=== PATIENT | female | born 1965 | race African-American/Black ===

== ENCOUNTER 2016-08-07 20:59 | Inpatient (IN) | payer MEDICARE, OTHER ==
--- NOTE | ~2016-08-07 | HP ---
History And Physical [place] [id number] [facility] [place]. [address] NAME: TAHMINA DUNCAN : 61 STATUS : ADM IN PAT#: [id number] AGE: 50 ADM/REG DATE : 08/08/16 MR#: [id number] REPORT SERV DATE: 08/08/16 DICTATED BY: CHRISTINE PANTOJA DATE: 08/08/16 REPORT STATUS : Draft TRANSCRIBED BY: MODTamika DATE: 08/08/16 DATE OF ADMISSION: 08/08/2016 CHIEF COMPLAINT: Uncontrolled blood pressure with blood pressure greater than 200. HISTORY OF PRESENT ILLNESS: This is a 50 years old female with a past medical history of ulcerative colitis, being followed by Dr. Rob Dawn, history of hypertension, cirrhosis, and polysubstance abuse, presented after being seen by her primary care physician, Dr. Sharon Tate, and found to have uncontrolled hypertension with a systolic blood pressure greater than 200 and diastolic pressure greater than 100, and the patient presented to [facility] ER. Her blood pressure was noted to be 201/106 upon arrival. The patient was given a dose of clonidine by ER physician, Dr. Bustamante. Also, the patient had a complaint of intermittent chest discomfort and also maroon-colored stools. According to the patient, she has had maroon-colored stools intermittently for the past two to three days with abdominal discomfort. Also, she describes her chest discomfort as intermittent, sharp with chest tightness, more on the left side, for which she states improves with an occasional anti- acid, but has been ongoing for several days intermittently. She denies any subjective fever or chills. No shortness of breath. She had a stool Hemoccult in the ER by ER nurse, which was brown stool and Hemoccult negative, and the hospitalist was called to admit the patient to the hospital. REVIEW OF SYSTEMS: Please refer to HPI. PAST MEDICAL HISTORY: Ulcerative colitis, gastroenteritis, hypertension, cirrhosis, bipolar, polysubstance abuse, esophageal varices, chronic lower back pain, chronic thrombocytopenia, IBS, anxiety, depression, GI bleed, Olmos's palsy, and peptic ulcer disease.. PAST SURGICAL HISTORY: , cholecystectomy, hysterectomy. ALLERGIES: NO KNOWN ALLERGIES. FAMILY HISTORY: Hypertension, CVA, and type 2 diabetes. SOCIAL HISTORY: Denies any tobacco abuse, denies any alcohol, and also denies any illicit drugs, although the patient was positive for cocaine and opiates. After the patient was informed of positive urine drug screen, she admitted to occasional marijuana usage and states that she has a partner who occasionally deals with cocaine, but the patient denies any cocaine usage, although positive for UDS. The patient denies any abuse. Denies anyone hitting her, although does have a black eye at this time. The patient states that she fell several days ago. HOME MEDICATIONS: Nexium 20 mg p.o. q.a.m. Prozac 40 mg p.o. q.a.m., multivitamin, Percocet one tab p.o. t.i.d., although no record on file per pharmacy with the admit database. Norvasc two tablets p.o. q.a.m. unknown dosage and an unknown iron tablet. History And Physical [address] [address] NAME: TAHMINA DUNCAN : 61 STATUS : ADM IN [facility]#: [id number] AGE: 50 ADM/REG DATE : 08/08/16 MR#: [id number] REPORT SERV DATE: 08/08/16 DICTATED BY: CHRISTINE PANTOJA DATE: 08/08/16 REPORT STATUS : Draft TRANSCRIBED BY: LUZ MARIA DATE: 08/08/16 PHYSICAL EXAMINATION: VITAL SIGNS: Temp of 98.1, initial blood pressure 201/106 currently at 125/79 with a pulse of 68, respirations 16, and saturating 99% on room air. GENERAL: The patient is alert and oriented x3, currently in no distress. Initially was resting upon arriving to the room. HEENT: Pupils equal, round, and reactive to light. Extraocular muscles are intact. Moist mucous membranes. CARDIOVASCULAR: S1, S2. Regular rate and rhythm. No murmurs, rubs, or gallops. RESPIRATORY: Clear to auscultation bilaterally. No wheezes or crackles. No signs of tachypnea. ABDOMEN: Positive bowel sounds. Soft, nontender. No rebound. No fluid wave. No distention. EXTREMITIES: 2+ pulse bilaterally. No neuro focal deficits of the extremities. The patient does have a chronic facial droop secondary to history of Olmos's palsy per patient. SKIN: The patient with black eye of the left eye. LABORATORY DATA: Sodium 140, potassium 3.5 with a chloride of 105, bicarb of 28, BUN of 9, creatinine is 0.96 with glucose of 98, albumin of 2.9, T bilirubin of 2.7, alkaline phosphatase 204, ALT of 39, AST of 93, troponin 0.04 and 0.05. Alcohol level less than 10. Salicylate less than 1.7. White count of 6.1 with a hemoglobin of 11.8, platelet count 151. INR of 1.4. Urine drug screen positive for cocaine and positive for opiates. EKG, normal sinus rhythm, no ST elevation. ASSESSMENT AND PLAN: 1. Hypertensive urgency, chest pain. 2. Abdominal pain with a history of ulcerative colitis. 3. Cirrhosis. 4. Polysubstance abuse. 5. The patient has been educated on polysubstance abuse cessation and the risks. Suspect the patient's intermittent chest discomfort is either GI related versus cocaine induced. However, the patient has never had a stress test. Therefore, may consider stress test as well. Also, we will order a CT of the abdomen and pelvis for abdominal discomfort, more generalized, and check for any underlying ulcerative colitis flare. 6. The patient will be admitted to and seen by my colleague, who will attend to this patient's care. [facility]/LUZ MARIA Christine Pantoja M.D. / [id number] CC: Theodore Barron MD History And Physical [address] [address] NAME: TAHMINA DUNCAN : 61 STATUS : ADM IN [facility]#: [id number] AGE: 50 ADM/REG DATE : 08/08/16 MR#: [id number] REPORT SERV DATE: 08/08/16 DICTATED BY: CHRISTINE PANTOJA DATE: 08/08/16 REPORT STATUS : Draft TRANSCRIBED BY: MODL DATE: 08/08/16 Sharon Tate M.D.
--- NOTE | ~2016-08-07 | DS ---
Discharge Summary [facility] [address] [facility] [place]. [address] NAME: TAHMINA DUNCAN : 61 STATUS : DIS IN PAT#: [id number] AGE: 50 ADM/REG DATE : 08/08/16 MR#: [id number] REPORT SERV DATE: 08/10/16 DICTATED BY: MERE IZQUIERDO DATE: 08/09/16 REPORT STATUS : Draft TRANSCRIBED BY: MODL DATE: 08/09/16 ADMISSION DATE: 08/08/2016 DISCHARGE DATE: 08/09/2016 The patient is a 50-year-old female with a history of hypertension, cirrhosis, ulcerative colitis who presented to the hospital with severely elevated blood pressure. For further details, please refer to H and P dictated by Dr. Conde on 08/08/2016. HOSPITAL COURSE: Upon presentation to the emergency room, patient was admitted under the Hospitalist Service. Her hypertensive urgency was treated with medication with subsequent improvement and eventual control of her hypertension. Also while in the emergency room, preliminary workup also included a urine drug screen which was positive for cocaine. Her initial troponin measured in the ER was 0.04 which trended up to 0.05. Her chest pain was thought to be cocaine induced versus ACS. During her hospital course, the patient had a myocardial perfusion study performed which was negative. While in the hospital, I counseled about the dangers of polysubstance abuse and counseled to stop using cocaine and marijuana. The patient voiced her willingness to quit. She has remained hemodynamically stable throughout her hospitalization. She did have an episode of chest pain overnight prompting an EKG to be obtained which was negative for any acute process with no ST elevations noted. Given her hemodynamic stability during completion of workup, the patient will be discharged today. Her medications have been up titrated to better control her hypertension. Given completion of workup and given her hemodynamic stability, patient will be discharged today. Plan has been discussed with the patient who voices understanding and is agreeable with this plan. DISCHARGE DIAGNOSES: 1. Hypertensive urgency. 2. Chest pain. 3. History of ulcerative colitis. 4. Polysubstance abuse. 5. Cirrhosis, compensated. DISCHARGE EXAM: VITAL SIGNS: Patient lying in bed, no acute distress. Appears stated age. Vitals: Blood pressure 133/75, pulse 61, respiration 14, O2 saturation 98% on room air. Temperature 97.9. GENERAL: The patient lying in bed, appears stated age, in no acute distress. HEENT: Normocephalic, atraumatic. Extraocular motors intact. Oral: Moist oral mucosa. Neck: Trachea midline. Symmetric. No JVD. No thyromegaly. No lymphadenopathy noted. CHEST: Nontender to palpation. CARDIOVASCULAR: Regular rate and rhythm S1, S2. No murmurs, rubs, or gallops. LUNGS: Clear to auscultation bilaterally with normal respiratory effort. ABDOMEN: Positive bowel sounds. Nontender. Nondistended. EXTREMITIES: No cyanosis, no clubbing, no edema. NEURO: Alert and oriented x3. No focal deficits appreciated. DISCHARGE MEDICATIONS: The patient's home medications were continued with increase in her Discharge Summary [address] [address] NAME: TAHMINA DUNCAN : 61 STATUS : DIS IN PAT#: [id number] AGE: 50 ADM/REG DATE : 08/08/16 MR#: [id number] REPORT SERV DATE: 08/10/16 DICTATED BY: MERE IZQUIERDO DATE: 08/09/16 REPORT STATUS : Draft TRANSCRIBED BY: LUZ MARIA DATE: 08/09/16 lisinopril from 5 to 10 mg p.o. daily. Discharge medications include: 1. Amlodipine 10 mg p.o. daily. 2. Prozac 40 mg p.o. every morning. 3. Multivitamin one tablet. 4. Lisinopril 10 mg p.o. daily. 5. Nexium 20 mg p.o. every morning. 6. Percocet 10/325 mg tablet p.o. one tab p.o. three times a day. 7. Ferrous sulfate 325 mg p.o. three times a day with meals. IMAGING: Nuclear myocardial imaging. Conclusion: Imaging demonstrated no ischemia with a fixed anterior defect on technical limited. Positions aligned below, post infusion EF 56%. Overall low risk to vasodilators stress test. DISPOSITION: Patient will be discharged home. FOLLOWUP: With her primary care. DIET: Low-salt diet. ACTIVITY: As tolerated. Greater than 30 minutes were spent coordinating care, planning discharge, dictation of note, medication reconciliation, providing counseling. ÓSCAR Mere Izquierdo MD / [id number] CC: MD Sharon Farnsworth M.D.
[2016-08-07 16:54] LABS: BASOPHILS 0.5 %; BASOPHILS ABSOLUTE 0.03 10/3/uL (0.0-0.16); EOSINOPHILS 0.7 %; EOSINOPHILS ABSOLUTE 0.04 10/3/uL (0.0-0.53); ER CBC TAT 0 Hrs 07 Mins; HEMATOCRIT 35.9 % (36.0-48.0); HEMOGLOBIN 11.8 g/dL (12.0-16.0); IMMATURE GRANULOCYTES 0.2 %; IMMATURE GRANULOCYTES ABSOLUTE 0.01 10/3/uL (0.0-0.11); LYMPHOCYTES 29.5 %; MEAN CORPUS HGB CONC 32.9 g/dL (32.0-36.0); MEAN CORPUSCULAR HEMOGLOB 31.2 pg (26.0-34.0); MONOCYTES 4.8 %; MONOCYTES ABSOLUTE 0.29 10/3/uL (0.21-1.20); NEUTROPHILS 64.3 %; NEUTROPHILS ABSOLUTE 3.93 10/3/uL (2.02-8.40); PLATELET COUNT 151 10/3/uL (150-400); RBC DISTRIBUTION WIDTH 17.5 % (12.0-16.0); RED CELL COUNT 3.78 10/6/uL (4.0-5.6); WHITE BLOOD CELLS 6.1 10/3/uL (4.5-10.5)
[2016-08-07 16:56] LABS: MANUAL DIFF NO %
[2016-08-07 17:04] LABS: INTERNATIONAL NORMAL RATI 1.4 UNITS (-); PARTIAL THROMBO TIME 37.3 SEC (22.5-37.2); PROTIME (NOT ORD) 16.9 SEC (12.0-14.5)
[2016-08-07 17:08] LABS: A/G RATIO 0.4 (0.7-1.9); ALBUMIN 2.9 G/DL (3.5-5.0); ALKALINE PHOSPHATASE 204 U/L (45-117); BUN (BLOOD UREA NITROGEN) 9 MG/DL (6-23); CALCIUM, SERUM 8.8 MG/DL (8.5-10.4); CHLORIDE, SERUM 105 MMOL/L (96-112); CO2 (CARBON DIOXIDE) 28 MMOL/L (24-34); CREATININE 0.96 MG/DL (0.55-1.02); GFR AFRICAN AMERICAN 79 ML/MIN (>=60); GFR NON AFRICAN AMERICAN 68 ML/MIN (>=60); GLOBULIN 6.6 G/DL (2.5-4.1); POTASSIUM, SERUM 3.5 MMOL/L (3.5-5.3); SGOT(AST) 93 U/L (5-40); SGPT(ALT) 39 U/L (5-65); SODIUM, SERUM 140 MMOL/L (135-148); TOTAL BILIRUBIN 2.7 MG/DL (0-1.2); TOTAL PROTEIN 9.5 G/DL (6.0-8.5)
[2016-08-07 17:09] LABS: GLUCOSE, SERUM 98 MG/DL (60-99)
[2016-08-07 20:50] LABS: TROPONIN I 0.04 NG/ML (<0.05)
[~2016-08-07 20:59] MED LIST: ADVIL PO; AMB5 PO; AMOXIL200 MG/5 M PO; CONSTULOSE PO; FERRETTS325 MG PO; FESO4 PO; LISINOPRIL40 MG PO; LORT2.5 PO; LORTAB10 PO; LOTREL1 CA1 PO; LOTREL1 CA4 PO; NOR25 PO; NORV10 PO; NORV5 PO; PAX20 PO; PEP20 PO; PRIN20 PO; PROTONIX PO; T PO; ULTRAM50 PO; X5 PO; XANAX1 MG PO; XIFAXAN550 MG PO; [UNRECOGNIZED DRUG - CODE] PO
[2016-08-07 22:34] LABS: ACETAMINOPHEN LEVEL (TYLENOL) < 2.0 MCG/ML (10.0-20.0)
[2016-08-07 22:35] LABS: ALCOHOL < 10 MG/DL (0); SALICYLATE < 1.7 MG/DL (-)
[2016-08-07 23:09] LABS: ASCORBIC ACID (UR NOT ORDER) NEG (NEG); BILIRUBIN, URINE NEGATIVE (NEG); ER URINALYSIS TAT 0 Hrs 18 Mins; KETONE, URINE NEGATIVE (NEG); LEUKOCYTE ESTERASE(NOT OR SMALL (NEG); NITRITE (URINE) NEG (NEG); WBC (NOT ORDERED) (RFLEX) 11 (0-5)
[2016-08-07] MEDS ORDERED: PERCOCET 10/3251 TAB PO (23:29)
[2016-08-07] MEDS ORDERED: NORV10 PO (23:29)
[2016-08-07] MEDS ORDERED: FERROUS SULF325 M1 PO (23:30)
[2016-08-07] MEDS ORDERED: NEXIUM20 M1 PO (23:30)
[2016-08-07] MEDS ORDERED: MULTIVIT/MIN PO (23:31)
[2016-08-07] MEDS ORDERED: PROZAC40 MG PO (23:33)
[2016-08-07 23:44] LABS: AMPHETAMINES (NOT ORD) NEG (NEG); BARBITURATES (NOT ORDERED NEG (NEG); BENZODIAZEPINES (NOT ORD) NEG (NEG); CANNABINOIDS (THC) NEG (NEG); COCAINE (NOT ORDERED) POS (NEG); OPIATES POS (NEG); PHENCYCLIDINE(PCP) NEG (NEG); TRICYCLICS NEG (NEG)
[2016-08-08 05:39] LABS: HEMOGLOBIN 9.5 g/dL (12.0-16.0)
[2016-08-08 05:49] LABS: HEMATOCRIT 28.7 % (36.0-48.0)
[2016-08-08 06:05] LABS: CK-MB 0.9 NG/ML; CPK 128 U/L (0-200); TROPONIN I 0.05 NG/ML (<0.05)
[2016-08-09 03:27] LABS: BASOPHILS 0.4 %; BASOPHILS ABSOLUTE 0.02 10/3/uL (0.0-0.16); EOSINOPHILS 1.5 %; EOSINOPHILS ABSOLUTE 0.07 10/3/uL (0.0-0.53); HEMATOCRIT 30.3 % (36.0-48.0); HEMOGLOBIN 10.1 g/dL (12.0-16.0); LYMPHOCYTES 34.4 %; LYMPHOCYTES ABSOLUTE 1.63 10/3/uL (0.67-4.30); MEAN CORPUS HGB CONC 33.3 g/dL (32.0-36.0); MEAN CORPUSCULAR HEMOGLOB 31.9 pg (26.0-34.0); MEAN CORPUSCULAR VOLUME 95.6 fL (80-100); MEAN PLATELET VOLUME 10.1 fL (9.2-13.0); MONOCYTES 7.8 %; MONOCYTES ABSOLUTE 0.37 10/3/uL (0.21-1.20); NEUTROPHILS 55.9 %; NEUTROPHILS ABSOLUTE 2.65 10/3/uL (2.02-8.40); PLATELET COUNT 119 10/3/uL (150-400); RBC DISTRIBUTION WIDTH 17.4 % (12.0-16.0); RED CELL COUNT 3.17 10/6/uL (4.0-5.6); WHITE BLOOD CELLS 4.7 10/3/uL (4.5-10.5)
[2016-08-09 03:28] LABS: MANUAL DIFF NO %
[2016-08-09 03:45] LABS: BUN (BLOOD UREA NITROGEN) 10 MG/DL (6-23); CHLORIDE, SERUM 106 MMOL/L (96-112); CO2 (CARBON DIOXIDE) 28 MMOL/L (24-34); CREATININE 1.07 MG/DL (0.55-1.02); GFR AFRICAN AMERICAN 69 ML/MIN (>=60); GFR NON AFRICAN AMERICAN 60 ML/MIN (>=60); GLUCOSE, SERUM 107 MG/DL (60-99); POTASSIUM, SERUM 3.5 MMOL/L (3.5-5.3); SGOT(AST) 67 U/L (5-40); SGPT(ALT) 31 U/L (5-65); SODIUM, SERUM 143 MMOL/L (135-148); TOTAL BILIRUBIN 2.5 MG/DL (0-1.2)
[2016-08-09 03:46] LABS: A/G RATIO 0.4 (0.7-1.9); ALBUMIN 2.2 G/DL (3.5-5.0); ALKALINE PHOSPHATASE 159 U/L (45-117); GLOBULIN 5.2 G/DL (2.5-4.1); TOTAL PROTEIN 7.4 G/DL (6.0-8.5)
[2016-08-09] MEDS ORDERED: PRIN10 PO (11:30)
[2016-12-26] MEDS ORDERED: FERROUS SULF325 M1 PO (02:33)
[2016-12-26] MEDS ORDERED: NEXIUM20 M1 PO (02:33)
[2016-12-26] MEDS ORDERED: NORV10 PO (02:33)
[2016-12-26] MEDS ORDERED: PRIN10 PO (02:33)
[2016-12-26] MEDS ORDERED: PROZAC40 MG PO (02:34)
[2016-12-30] MEDS ORDERED: L10 PO (09:59)
[2016-12-30] MEDS ORDERED: PROTONIX PO (09:59)
[2016-12-30] MEDS ORDERED: I10 PO (09:59)
[2016-12-30] MEDS ORDERED: THERGRANM PO (10:00)
== END 2016-08-09 13:17 | disposition home or self-care (01) | DRG 305 ==
LOC: ER 20:59 → 2SO 08-08 01:15
PROVIDERS: Emergency Medicine; Hospitalist
DX: I16.0 Hypertensive urgency (principal); D69.6 Thrombocytopenia, unspecified; K74.60 Unspecified cirrhosis of liver; F11.20 Opioid dependence, uncomplicated; K51.90 Ulcerative colitis, unspecified, without complications; R07.9 Chest pain, unspecified; G51.0 Bell's palsy; F31.9 Bipolar disorder, unspecified; M54.9 Dorsalgia, unspecified; E11.9 Type 2 diabetes mellitus without complications; G89.29 Other chronic pain; K58.9 Irritable bowel syndrome, unspecified; F41.9 Anxiety disorder, unspecified; F12.10 Cannabis abuse, uncomplicated; F32.9 Major depressive disorder, single episode, unspecified; F14.10 Cocaine abuse, uncomplicated; Z87.11 Personal history of peptic ulcer disease; Z98.890 Other specified postprocedural states; Z82.49 Family history of ischemic heart disease and other diseases of the circulatory system; Z82.3 Family history of stroke; Z83.3 Family history of diabetes mellitus
CPT/HCPCS: 36415; 71010; 74176; 78451; 78452; 80053; 80305; 80307; 81001; 82550; 82553; 84484; 84703; 85014; 85018; 85025; 85610; 85730; 86850; 86900; 86901; 87086; 93005; 93017; 99285; A9270-GY; A9502; J2405; J2785